=== PATIENT | male | born 1990 | race American Indian/Alaskan Native ===

== ENCOUNTER 2016-06-26 15:54 | Emergency (ER) | payer SELFPAY ==
[2016-06-26 16:11] VITALS: BP 174/106
[2016-06-26 16:37] LABS: Basophils % (Auto) 0.5 % (0.0-1.8); Eosinophils % (Auto) 1.1 % (0.0-4.3); Hematocrit 44.5 % (35.5-45.6); Hemoglobin 14.5 gm/dl (11.8-15.2); Mean Corpuscular HGB Conc 33 % (32-34); Mean Corpuscular Hemoglobin 27 pg (28-32); Mean Corpuscular Volume 84 fl (84-94); Platelet Count 193 K/mm3 (140-440); Red Blood Count 5.31 M/mm3 (3.65-5.03); Red Cell Distribution Width 13.2 % (13.2-15.2); White Blood Count 6.6 K/mm3 (4.5-11.0)
[2016-06-26 16:45] LABS: Anion Gap 18 mmol/L; BUN/Creatinine Ratio 11.11; Blood Urea Nitrogen 10 mg/dL (9-20); Calcium 9.5 mg/dL (8.4-10.2); Carbon Dioxide 25 mmol/L (22-30); Chloride 100.8 mmol/L (98-107); Glucose 85 mg/dL (75-100); Sodium 140 mmol/L (137-145)
[2016-06-26 17:02] LABS: Urine Drugs of Abuse Note Disclamer
[2016-06-26 17:12] LABS: Bilirubin,Urine NEG (Negative); Blood,Urine NEG (Negative); Ketones,Urine TR mg/dL (Negative); Leukocyte Esterase,Urine NEG (Negative); Nitrite,Urine NEG (Negative); Protein,Urine <15 mg/dL mg/dL (Negative); Urobilinogen,Urine < 2.0 mg/dL (<2.0); WBC,Urine < 1.0 /HPF (0.0-6.0)
[2016-06-26] MEDS ORDERED: NACL 0.9% 1000 ML 0 ML ONE ×2 (18:43→18:58)
[2016-06-26] MEDS ORDERED: MORPHINE ONE ×3 (18:48→19:05)
== END 2016-06-26 20:00 | disposition left against medical advice (07) ==
LOC: ED 15:54
DX: F20.9 Schizophrenia, unspecified (principal); M79.1 Myalgia; Z53.21 Procedure and treatment not carried out due to patient leaving prior to being seen by health care provider
CPT/HCPCS: 36415; 80048; 80307; 81001; 85025; G0480; J2270; 80320; J7030